=== PATIENT | male | born 1960 | race Caucasian/White ===

== ENCOUNTER 2018-03-20 09:10 | Emergency (ER) | payer BC ==
[2018-03-20] MEDS ORDERED: TOPICAL LIDOCAINE W/ EPI 5 ML TOP ONE (09:12)
[2018-03-20] MEDS ORDERED: THROMBIN/GELATIN FOAM HEMOSTAT (THROMBI-GEL) TP ONE (09:12)
[2018-03-20] MEDS ORDERED: TRANEXAMIC ACID 1,000 MG/10 ML ML TOP ONE (09:12)
[2018-03-20] MEDS ORDERED: DIPHENHYDRAMINE HCL 50 MG/ML VIAL IVP ONE (09:13)
--- NOTE | 2018-03-20 09:30 | Emergency Department Record ---
History of Present Illness - General Stated complaint: BLEEDING FROM NECK Time Seen by Provider: 03/20/18 09:12 Source: Patient Mode of Arrival: Ambulatory Limitations: No limitations - History of Present Illness Initial comments: 57 yo male presents with bleeding from the neck after picking a small pimple. The area has not stopped bleeding. He states he usually bleeds a lot but has never been diagnosed with a bleeding disorder and does not take anti- coagulants. He also now feels like he is having an allergic reaction but is unsure to what. He has had reactions in the past. He feels flushed. He took Benadryl prior to arrival. No hives or swelling. MD complaint: Lesion -: Hour(s) (1) Location: Neck Severity: Moderate Consistency: Constant Improves with: None Worsens with: Other (Picks at skin) Context: None (picks at skin) Associated symptoms: Other (flushing) Treatments Prior to Arrival: Benadryl - Related Data Home Medications Medication Instructions Recorded Confirmed Last Taken Cyanocobalamin (Vitamin B-12) 1,000 mcg IJ ASDIR 03/20/18 03/20/18 2 Weeks Ago [Cyanocobalamin Injection] ~03/06/18 Epinephrine [Epipen] 0.3 mg IM ASDIR PRN 03/20/18 03/20/18 Unknown Meperidine HCl/Pf [Demerol 100 100 mg IJ BID PRN 03/20/18 03/20/18 1 Day Ago mg/ml Carpuject] ~03/19/18 Ondansetron [Zofran Odt] 4 mg PO Q8H 03/20/18 03/20/18 1 Day Ago ~03/19/18 Propranolol HCl [Inderal LA] 60 mg PO DAILY 03/20/18 03/20/18 1 Day Ago ~03/19/18 Quetiapine Fumarate [Seroquel] 50 mg PO DAILY 03/20/18 03/20/18 1 Day Ago ~03/19/18 Ranitidine HCl 150 mg PO DAILY 03/20/18 03/20/18 1 Day Ago ~03/19/18 Rosuvastatin Calcium 10 mg PO DAILY 03/20/18 03/20/18 1 Day Ago ~03/19/18 Sumatriptan Succinate [Imitrex] 6 mg SQ DAILY PRN 03/20/18 03/20/18 1 Day Ago ~03/19/18 Tizanidine HCl [Zanaflex] 4 mg PO DAILY 03/20/18 03/20/18 1 Day Ago ~03/19/18 Allergies Allergy/AdvReac Type Severity Reaction Status Date / Time adhesive tape Allergy HYPERSENSIT Verified 03/20/18 09:27 IVITY ciprofloxacin Allergy RASH Verified 03/20/18 09:27 codeine Allergy SWELLING Verified 03/20/18 09:27 OF THE TONGUE fentanyl Allergy SWELLING Verified 03/20/18 09:27 OF THE TONGUE hydrocortisone Allergy SWELLING Verified 03/20/18 09:27 (GENERAL) hydromorphone [From Dilaudid] Allergy SWELLING Verified 03/20/18 09:27 OF THE TONGUE iodine Allergy DIFFICULTY Verified 03/20/18 09:27 BREATHING meperidine [From Demerol] Allergy HIVES Verified 03/20/18 09:27 morphine Allergy DIFFICULTY Verified 03/20/18 09:27 BREATHING pantoprazole [From Protonix] Allergy ANAPHYLAXIS Verified 03/20/18 09:27 Penicillins Allergy DIFFICULTY Verified 03/20/18 09:27 BREATHING propylthiouracil Allergy HYPERSENSIT Verified 03/20/18 09:27 IVITY Review of Systems Constitutional: Denies: Chills, Fever, Malaise Eyes: Denies: Eye discharge, Eye pain, Photophobia ENT: Denies: Congestion, Throat pain Respiratory: Denies: Cough, Dyspnea, Hemoptysis, Stridor, Wheezes Cardiovascular: Denies: Chest pain, Syncope Endocrine: Denies: Fatigue Gastrointestinal: Denies: Abdominal pain, Diarrhea, Nausea, Vomiting Genitourinary: Denies: Dysuria, Frequency, Hematuria Musculoskeletal: Denies: Arthralgia, Back pain, Joint swelling, Myalgia Skin: Reports: Change in color, Lesions. Denies: Bruising Neurological: Denies: Confusion, Headache Psychiatric: Denies: Anxiety Hematological/Lymphatic: Reports: Easy bleeding. Denies: Anemia, Blood Clots, Easy bruising, Swollen glands Physical Exam - General General Appearance: Alert, Oriented x3, Cooperative, No acute distress Limitations: No limitations - Head Head exam: Atraumatic, Normocephalic, Normal inspection - Eye Eye exam: Normal appearance, PERRL. negative: Conjunctival injection, Scleral icterus - ENT ENT exam: Normal exam, Mucous membranes moist, Normal orophraynx Ear exam: Normal external inspection Nasal Exam: Normal inspection. negative: Dried blood Mouth exam: Normal external inspection, Tongue normal. negative: Drooling, Muffled voice, Tongue elevation, Trismus Teeth exam: Normal inspection Throat exam: Normal inspection. negative: Tonsillar erythema, Tonsillomegaly, Tonsillar exudate, R peritonsillar mass, L peritonsillar mass - Neck Neck exam: Full ROM (no neck swelling or hematoma), Other (2mm bleeding site that had been picked by the patient). negative: Normal inspection - Respiratory Respiratory exam: Normal lung sounds bilaterally. negative: Respiratory distress - Cardiovascular Cardiovascular Exam: Regular rate, Normal rhythm, Normal heart sounds - GI/Abdominal GI/Abdominal exam: Soft. negative: Tenderness - Rectal Rectal exam: Deferred - exam: Deferred - Extremities Extremities exam: Normal inspection, Full ROM, Normal capillary refill. negative: Pedal edema, Tenderness - Back Back exam: Denies: CVA tenderness (R), CVA tenderness (L) - Neurological Neurological exam: Alert, Oriented X3 - Psychiatric Psychiatric exam: Normal affect, Normal mood - Skin Skin exam: Other (2mm neck bleeding site) Course - Reevaluation(s) Reevaluation #1: Direct pressure was applied to the wound TLE place on cotton ball Lidocaine with epinephrine local 1.5ml Silver nitrate applied with good results with mild ooze TXA on thromin gelfoam placed with good results. 03/20/18 09:37 03/20/18 10:11 The patient is resting comfortably No acute changes on the CBC No bleeding under the clear tegaderm 03/20/18 10:21 There is a mild decrease in K Replacement ordered Doing well. No bleeding Medical Decision Making - Lab Data Result diagrams: 03/20/18 09:17 03/20/18 09:17 Disposition Disposition: Discharge Clinical Impression: Bleeding, Hypokalemia Disposition: Home, Self-Care Condition: (1) Good Instructions: Hypokalemia (ED), Hematoma (ED) Additional Instructions: Leave the dressing on until Tuesday morning Return if you have pain, swelling, bleeding Call your doctor for a recheck after this ED visit to review the visit and results Forms: Patient Portal Access Time of Disposition: 10:13 Quality - Quality Measures Quality Measures: N/A - Blood Pressure Screening Does Patient Have Any of the Following: Active Dx of HTN Blood Pressure Classification: Hypertensive Reading Systolic Measurement: 201 Diastolic Measurement: 133 Screening for High Blood Pressure: Patient Exclusion, Hx of HTN [G9744]
[2018-03-20 10:03] LABS: BASO % 0.3 % (0-6); EOS % 1.8 % (0-6); GRAN % 65.3 % (47-80); HEMATOCRIT 44.9 % (42.0-52.0); HEMOGLOBIN 14.3 gm/dl (14.0-18.0); LYMPH % 20.6 % (16-45); MEAN CELL VOLUME 83.8 fl (81-97); MEAN CORPUSCULAR HEMOGLOBIN 26.7 pg (27-33); MEAN CORPUSCULAR HGB CONC 31.8 g/dl (32-36); MEAN PLATELET VOLUME 9.5 fl (7.4-10.4); PLATELET COUNT 231 K/uL (130-400); RED BLOOD COUNT 5.36 M/uL (4.40-5.70); RED CELL DISTRIBUTION WIDTH 14.9 % (11.5-14.5); WHITE BLOOD COUNT W/O DIFF 10.2 K/uL (4.2-12.2)
[2018-03-20 10:09] LABS: BLOOD UREA NITROGEN 12 mg/dL (6-20); CREATININE 1.1 mg/dL (0.7-1.2); EST GLOMERULAR FILTRATION RATE > 60 mL/min
[2018-03-20 10:12] LABS: GLUCOSE,RANDOM 100 mg/dL (74-109)
[2018-03-20 10:13] LABS: PARTIAL THROMBOPLASTIN TIME 24.5 SECONDS (24.5-39.1); PROTHROMBIN TIME (PATIENT) 10.4 SECONDS (9.5-12.1)
[2018-03-20] MEDS ORDERED: POTASSIUM CHLORIDE 20 MEQ TABLET PO ONE (10:21)
[2018-03-20] MEDS ORDERED: POTASSIUM BICARB./CIT AC 25 MEQ EFF.TAB PO STA (10:32)
== END 2018-03-20 11:14 | disposition home or self-care (01) ==
LOC: ER 09:10
DX: S10.90XA Unspecified superficial injury of unspecified part of neck, initial encounter (principal); E87.6 Hypokalemia; I10 Essential (primary) hypertension; W22.8XXA Striking against or struck by other objects, initial encounter
CPT/HCPCS: 99284 ×2; 96374; 85025; 85730; 85610; 80048; J3490; J1200

== ENCOUNTER 2018-07-26 09:41 | Emergency (ER) | payer BC ==
[2018-07-26] MEDS ORDERED: METOCLOPRAMIDE HCL 10 MG/2 ML VIAL IVP ONE (10:05)
[2018-07-26] MEDS ORDERED: KETOROLAC 30 MG/ML VIAL IVP ONE (10:05)
[2018-07-26] MEDS ORDERED: 0.9 % SODIUM CHLORIDE 1,000 ML BAG IV ONE ×2 (10:05→10:45)
[2018-07-26] MEDS ORDERED: DIPHENHYDRAMINE HCL 50 MG/ML VIAL IVP ONE (10:05)
--- NOTE | 2018-07-26 10:21 | Emergency Department Record ---
History of Present Illness - General Chief Complaint: Headache Migraine Stated Complaint: MIGRAINE AND VOMITING Time Seen by Provider: 07/26/18 10:00 Source: Patient, Family Mode of Arrival: Ambulatory Limitations: No limitations - History of Present Illness Initial Comments: The patient is here due to a migraine JOINER for the last 5 days. The pain is a sharp throbbing JOINER that has gradually worsened over the last 5 days. He also has had a lot of nausea and vomiting and photophobia. The patient states the pain is over the R temporal area mainly and he does deny any neck pain or stiffness. The patient has a LONG hx of these exact same JOINER's and has had a full workup in the past. He states the only medicine that helps him is injectable Demerol but he has been unable to obtain it. MD Complaint: "Migraine" Onset/Timin -: Days(s) Location: Right, Temporal Severity scale (1-10): 10 Consistency: Constant Improves With: Nothing Worsens With: Exertion/activity, Light Associated Symptoms: Photophobia, Vomiting, Other Treatments Prior to Arrival: None - Related Data Home Medications Medication Instructions Recorded Confirmed Last Taken Promethazine HCl [Phenergan] 25 mg PO DAILY PRN 07/26/18 07/26/18 Unknown Allergies Allergy/AdvReac Type Severity Reaction Status Date / Time adhesive tape Allergy HYPERSENSIT Verified 07/26/18 10:01 IVITY ciprofloxacin Allergy RASH Verified 07/26/18 10:01 codeine Allergy SWELLING Verified 07/26/18 10:01 OF THE TONGUE fentanyl Allergy SWELLING Verified 07/26/18 10:01 OF THE TONGUE hydrocortisone Allergy SWELLING Verified 07/26/18 10:01 (GENERAL) hydromorphone [From Dilaudid] Allergy SWELLING Verified 07/26/18 10:01 OF THE TONGUE iodine Allergy DIFFICULTY Verified 07/26/18 10:01 BREATHING meperidine [From Demerol] Allergy HIVES Verified 07/26/18 10:01 morphine Allergy DIFFICULTY Verified 07/26/18 10:01 BREATHING pantoprazole [From Protonix] Allergy ANAPHYLAXIS Verified 07/26/18 10:01 Penicillins Allergy DIFFICULTY Verified 07/26/18 10:01 BREATHING propylthiouracil Allergy HYPERSENSIT Verified 07/26/18 10:01 IVITY Travel Screening - Travel/Exposure Within Last 30 Days Have you traveled within the last 30 days?: No - Travel/Exposure Within Last Year Have you traveled outside the [place] in the last year?: No - Additonal Travel Details Have you been exposed to anyone with a communicable illness?: No - Travel Symptoms Symptom Screening: None Review of Systems Constitutional: Denies: Chills, Fever Eyes: Denies: Eye discharge ENT: Denies: Congestion Respiratory: Denies: Cough, Dyspnea Cardiovascular: Denies: Arrhythmia Endocrine: Denies: Fatigue Gastrointestinal: Reports: Nausea, Vomiting. Denies: Abdominal pain Genitourinary: Denies: Hematuria Musculoskeletal: Denies: Back pain Skin: Denies: Bruising Past Medical History - SOCIAL HISTORY Smoking Status: Never smoker Alcohol Use: None Drug Use: None - RESPIRATORY Hx Respiratory Disorders: No - CARDIOVASCULAR Hx Cardio Disorders: Yes Hx Hypertension: Yes Comment:: murmur - NEURO Hx Neuro Disorders: Yes Hx Headaches: Yes (migraine) - GI Hx GI Disorders: Yes Hx Rectal Bleeding: Yes - Hx Genitourinary Disorders: Yes Hx Kidney Stones: Yes Hx Renal Disease: Yes (stage 3) - ENDOCRINE Hx Endocrine Disorders: Yes Hx Thyroid Disease: Yes (hyper/hypo) - MUSCULOSKELETAL Hx Musculoskeletal Disorders: Yes Hx Arthritis: Yes - PSYCH Hx Psych Problems: No - HEMATOLOGY/ONCOLOGY Hx Hematology/Oncology Disorders: Yes Hx Anemia: Yes Hx Cancer: Yes (colon) Hx Chemotherapy: Yes Hx Radiation Therapy: Yes Family Medical History Any Significant Family History?: No Hx Heart Disease: Father, Brother/Sister Physical Exam - General General Appearance: Alert, Oriented x3, Cooperative, Mild distress (due to the JOINER.) - Head Head exam: Atraumatic, Normocephalic, Normal inspection - Eye Eye exam: Normal appearance, PERRL, EOMI - ENT Throat exam: Normal inspection. negative: Tonsillar erythema, Tonsillar exudate - Neck Neck exam: Normal inspection, Full ROM. negative: Meningismus (The neck is very supple.), Tenderness - Respiratory Respiratory exam: Normal lung sounds bilaterally. negative: Respiratory distress - Cardiovascular Cardiovascular Exam: Regular rate, Normal rhythm, Normal heart sounds - GI/Abdominal GI/Abdominal exam: Soft, Normal bowel sounds. negative: Tenderness - Extremities Extremities exam: Normal inspection, Full ROM, Normal capillary refill. negative: Tenderness - Back Back exam: Reports: Normal inspection - Neurological Neurological exam: Normal gait, Oriented X3, Other (Neg Drift or [place]omberg.). negative: Abnormal gait, Alert, Motor sensory deficit - Psychiatric Psychiatric exam: Anxious Course Vital Signs 07/26/18 09:50 Temperature 98.6 F Pulse Rate 91 H Respiratory 20 Rate Blood Pressure 154/103 Pulse Ox 97 - Reevaluation(s) Reevaluation #1: The patient is doing a lot better at this time. His pain is almost completely resolved and his nausea also is gone. He is up walking with no difficulty or ataxia. He is to F/U with his PCP later this week for recheck. 07/26/18 11:21 Medical Decision Making - Lab Data Result diagrams: 07/26/18 10:15 07/26/18 10:15 Disposition Disposition: Discharge Clinical Impression: Migraine Qualifiers: Migraine type: unspecified Status migrainosus presence: without status migrainosus Intractability: not intractable Qualified Code(s): G43.909 - Migraine, unspecified, not intractable, without status migrainosus Disposition: Home, Self-Care Condition: (2) Stable Instructions: Migraine Headache (ED) Additional Instructions: Please continue your regular medicines for pain and see your family doctor later this week for recheck. Return to the ER for any worsening pain, fever, vomiting, neck stiffness or confusion. Forms: Patient Portal Access Time of Disposition: 11:23 Quality - Quality Measures Quality Measures: Headache (All Ages) - Headache: Neuroimaging Quality Measure: Measure #419: Overuse of Neuroimaging ICD10 Codes Entered: Yes View Detail: Yes Neurological Exam: Patient had a normal neurological exam. [G9535] Headache: Use of Neuroimaging: < CTA, CT, MRA or MRI was NOT ordered > [G9534] - Blood Pressure Screening View Details: Yes Does Patient Have Any of the Following: Active Dx of HTN Blood Pressure Classification: Hypertensive Reading Systolic Measurement: 160 Diastolic Measurement: 100 Screening for High Blood Pressure: Patient Exclusion, Hx of HTN [G9744]
[2018-07-26 10:35] LABS: BASO % 0.3 % (0-6); EOS % 0.7 % (0-6); GRAN % 67.6 % (47-80); HEMATOCRIT 49.3 % (42.0-52.0); HEMOGLOBIN 16.3 gm/dl (14.0-18.0); LYMPH % 17.5 % (16-45); MEAN CELL VOLUME 84.4 fl (81-97); MEAN CORPUSCULAR HEMOGLOBIN 27.9 pg (27-33); MEAN CORPUSCULAR HGB CONC 33.1 g/dl (32-36); MEAN PLATELET VOLUME 9.1 fl (7.4-10.4); MONO % 13.9 % (0-9); PLATELET COUNT 226 K/uL (130-400); RED BLOOD COUNT 5.84 M/uL (4.40-5.70); RED CELL DISTRIBUTION WIDTH 13.7 % (11.5-14.5); WHITE BLOOD COUNT W/O DIFF 7.1 K/uL (4.2-12.2)
[2018-07-26 10:44] LABS: BLOOD UREA NITROGEN 17 mg/dL (6-20); EST GLOMERULAR FILTRATION RATE > 60 mL/min
[2018-07-26 10:45] LABS: TOTAL PROTEIN 7.4 g/dL (6.6-8.7)
[2018-07-26] MEDS ORDERED: ONDANSETRON HCL IV 4 MG/2 ML VIAL IVP ONE (10:45)
[2018-07-26 10:47] LABS: GLUCOSE,RANDOM 112 mg/dL (74-109)
[2018-07-26 10:49] LABS: ALT/SGPT 16 U/L (<41)
[2018-07-26 10:50] LABS: ALB/GLOB RATIO 1.5 (1.1-1.8); ALBUMIN 4.4 g/dL (4.0-5.0); ALKALINE PHOSPHATASE 77 U/L (40-129); AST/SGOT 23 U/L (10.0-50.0)
== END 2018-07-26 11:35 | disposition home or self-care (01) ==
LOC: ER 09:41
DX: G43.909 Migraine, unspecified, not intractable, without status migrainosus (principal); R11.2 Nausea with vomiting, unspecified; H53.149 Visual discomfort, unspecified; I10 Essential (primary) hypertension
CPT/HCPCS: 99284 ×2; 96374; 96375; 96361; 85025; 80053; J1885; J2405; J1200; J2765; J7030

== ENCOUNTER 2018-10-15 08:52 | Emergency (ER) | payer BC ==
[2018-10-15] MEDS ORDERED: 0.9 % SODIUM CHLORIDE 1,000 ML BAG IV ONE (09:35)
--- NOTE | 2018-10-15 09:36 | Emergency Department Record ---
History of Present Illness - General Chief Complaint: Headache Migraine Stated Complaint: MIGRAINE,VOMITING Time Seen by Provider: 10/15/18 09:32 Source: Patient, RN notes reviewed Mode of Arrival: Ambulatory - History of Present Illness Initial Comments: patient has a headache migraine which is chronic last headache one month ago. Onset/Timin -: Days(s) Onset Description: Gradual Location: Frontal Severity: Severe Severity scale (1-10): 10 Quality: Similar to previous headaches Consistency: Constant Improves With: Nothing Worsens With: Light, Noise Associated Symptoms: Photophobia, Sensitivity to sound, Vomiting Treatments Prior to Arrival: Prescription analgesic Treatment Prior to Arrival Comment:: po Demerol - Related Data Home Medications Medication Instructions Recorded Confirmed Last Taken Meperidine HCl 100 mg PO ASDIR PRN 10/15/18 10/15/18 10/15/18 Ondansetron [Zofran Odt] 4 mg SL ASDIR 10/15/18 10/15/18 10/15/18 Promethazine HCl [Phenergan] 25 mg PO ASDIR 10/15/18 10/15/18 10/14/18 Propranolol HCl [Inderal LA] 60 mg PO DAILY 10/15/18 10/15/18 10/14/18 Quetiapine Fumarate [Seroquel] 50 mg PO QHS 10/15/18 10/15/18 10/14/18 Ranitidine HCl [Zantac] 150 mg PO DAILY 10/15/18 10/15/18 10/14/18 Rosuvastatin Calcium [Crestor] 10 mg PO DAILY 10/15/18 10/15/18 10/14/18 Sumatriptan Succinate [Imitrex] 6 mg SQ ASDIR PRN 10/15/18 10/15/18 10/11/18 Tizanidine HCl 4 mg PO ASDIR 10/15/18 10/15/18 10/15/18 Allergies Allergy/AdvReac Type Severity Reaction Status Date / Time adhesive tape Allergy HYPERSENSIT Verified 10/15/18 09:13 IVITY ciprofloxacin Allergy RASH Verified 10/15/18 09:13 codeine Allergy SWELLING Verified 10/15/18 09:13 OF THE TONGUE fentanyl Allergy SWELLING Verified 10/15/18 09:13 OF THE TONGUE hydrocortisone Allergy SWELLING Verified 10/15/18 09:13 (GENERAL) hydromorphone [From Dilaudid] Allergy SWELLING Verified 10/15/18 09:13 OF THE TONGUE iodine Allergy DIFFICULTY Verified 10/15/18 09:13 BREATHING meperidine [From Demerol] Allergy HIVES Verified 10/15/18 09:13 morphine Allergy DIFFICULTY Verified 10/15/18 09:13 BREATHING pantoprazole [From Protonix] Allergy ANAPHYLAXIS Verified 10/15/18 09:13 Penicillins Allergy DIFFICULTY Verified 10/15/18 09:13 BREATHING propylthiouracil Allergy HYPERSENSIT Verified 10/15/18 09:13 IVITY Travel Screening - Travel/Exposure Within Last 30 Days Have you traveled within the last 30 days?: No - Travel/Exposure Within Last Year Have you traveled outside the [place] in the last year?: No - Additonal Travel Details Have you been exposed to anyone with a communicable illness?: No - Travel Symptoms Symptom Screening: None Review of Systems Reviewed: No additional complaints except as noted below Constitutional: Reports: As per HPI. Denies: Chills, Fever, Malaise, Night sweats, Weakness, Weight change Eyes: Reports: As per HPI. Denies: Eye discharge, Eye pain, Photophobia, Vision change ENT: Reports: As per HPI. Denies: Congestion, Dental pain, Ear pain, Epistaxis , Hearing loss, Throat pain Respiratory: Reports: As per HPI. Denies: Cough, Dyspnea, Hemoptysis, Stridor, Wheezes Cardiovascular: Reports: As per HPI. Denies: Arrhythmia, Chest pain, Dyspnea on exertion, Edema, Murmurs, Orthopnea, Palpitations, Paroxysmal nocturnal dyspnea, Rheumatic Fever, Syncope Endocrine: Reports: As per HPI. Denies: Fatigue, Heat or cold intolerance, Polydipsia, Polyuria Gastrointestinal: Reports: As per HPI. Denies: Abdominal pain, Constipation, Diarrhea, Hematemesis, Hematochezia, Melena, Nausea, Vomiting Genitourinary: Reports: As per HPI. Denies: Dysuria, Frequency, Hematuria, Incontinence, Retention, Testicular pain, Testicular mass, Urgency Musculoskeletal: Reports: As per HPI. Denies: Arthralgia, Back pain, Gout, Joint swelling, Myalgia, Neck pain Skin: Reports: As per HPI. Denies: Bruising, Change in color, Change in hair/ nails, Lesions, Pruritus, Rash Neurological: Reports: As per HPI, Headache. Denies: Abnormal gait, Confusion, Numbness, Paresthesias, Seizure, Tingling, Tremors, Vertigo, Weakness Psychiatric: Reports: As per HPI. Denies: Anxiety, Auditory hallucinations, Depression, Homicidal thoughts, Suicidal thoughts, Visual hallucinations Hematological/Lymphatic: Reports: As per HPI. Denies: Anemia, Blood Clots, Easy bleeding, Easy bruising, Swollen glands Past Medical History - SOCIAL HISTORY Smoking Status: Never smoker Alcohol Use: Rare Drug Use: None - RESPIRATORY Hx Respiratory Disorders: No - CARDIOVASCULAR Hx Cardio Disorders: Yes Hx Hypertension: Yes Comment:: murmur - NEURO Hx Neuro Disorders: Yes Hx Headaches: Yes (migraine) - GI Hx GI Disorders: Yes Hx Reflux: Yes Hx Rectal Bleeding: Yes - Hx Genitourinary Disorders: Yes Hx Kidney Stones: Yes Hx Renal Disease: Yes (stage 3) - ENDOCRINE Hx Endocrine Disorders: Yes Hx Thyroid Disease: Yes (hyper/hypo) - MUSCULOSKELETAL Hx Musculoskeletal Disorders: Yes Hx Arthritis: Yes - PSYCH Hx Psych Problems: No - HEMATOLOGY/ONCOLOGY Hx Hematology/Oncology Disorders: Yes Hx Anemia: Yes Hx Cancer: Yes (colon) Hx Chemotherapy: Yes Hx Radiation Therapy: Yes Family Medical History Any Significant Family History?: Yes Hx Heart Disease: Father, Brother/Sister Physical Exam - General General Appearance: Alert, Oriented x3, Cooperative, No acute distress - Head Head exam: Normal inspection - Eye Eye exam: Normal appearance, PERRL Pupils: Normal accommodation - ENT ENT exam: Normal exam, Mucous membranes moist, Normal external ear exam, Normal orophraynx, TM's normal bilaterally Ear exam: Normal external inspection. negative: External canal tenderness Nasal Exam: Normal inspection. negative: Discharge, Sinus tenderness Mouth exam: Normal external inspection, Tongue normal Teeth exam: Normal inspection. negative: Dental caries Throat exam: Normal inspection. negative: Tonsillar erythema, Tonsillar exudate - Neck Neck exam: Normal inspection, Full ROM. negative: Tenderness - Respiratory Respiratory exam: Normal lung sounds bilaterally. negative: Respiratory distress - Cardiovascular Cardiovascular Exam: Regular rate, Normal rhythm, Normal heart sounds - GI/Abdominal GI/Abdominal exam: Soft, Normal bowel sounds. negative: Tenderness - Rectal Rectal exam: Deferred - exam: Deferred - Extremities Extremities exam: Normal inspection, Full ROM, Normal capillary refill. negative: Tenderness - Back Back exam: Reports: Normal inspection, Full ROM. Denies: Muscle spasm, Rash noted, Tenderness - Neurological Neurological exam: Alert, Normal gait, Oriented X3, Reflexes normal - Psychiatric Psychiatric exam: Normal affect, Normal mood - Skin Skin exam: Dry, Intact, Normal color, Warm Course Vital Signs 10/15/18 09:25 Temperature 98.2 F Pulse Rate 92 H Respiratory 20 Rate Blood Pressure 157/97 Pulse Ox 96 - Reevaluation(s) Reevaluation #1: patient is feeling better 10/15/18 11:16 Medical Decision Making - Data Complexity MDM Data: Labs Ordered and/or Reviewed (wbc 8,300 glucose 131 bun 12 creat 1.) - Lab Data Result diagrams: 10/15/18 09:15 10/15/18 09:15 Disposition Clinical Impression: Migraine Qualifiers: Migraine type: unspecified Status migrainosus presence: without status migrainosus Intractability: not intractable Qualified Code(s): G43.909 - Migraine, unspecified, not intractable, without status migrainosus Disposition: Home, Self-Care Condition: (1) Good Instructions: Migraine Headache (ED) Additional Instructions: continue home medications follow up with family DR in 2 days Forms: Patient Portal Access Time of Disposition: 11:18 Quality - Quality Measures Quality Measures: N/A, Headache (All Ages) - Headache: Neuroimaging Quality Measure: Measure #419: Overuse of Neuroimaging ICD10 Codes Entered: Yes Neurological Exam: Patient had a normal neurological exam. [G9535] Headache: Use of Neuroimaging: < CTA, CT, MRA or MRI was NOT ordered > [G9534] - Blood Pressure Screening Does Patient Have Any of the Following: No, Active Dx of HTN Blood Pressure Classification: Hypertensive Reading Systolic Measurement: 157 Diastolic Measurement: 97 Screening for High Blood Pressure: Patient Exclusion, Hx of HTN [G9744]
[2018-10-15] MEDS ORDERED: METOCLOPRAMIDE HCL 10 MG/2 ML VIAL IVP ONE (09:37)
[2018-10-15] MEDS ORDERED: DIPHENHYDRAMINE HCL 50 MG/ML VIAL IVP ONE (09:37)
[2018-10-15] MEDS ORDERED: KETOROLAC 30 MG/ML VIAL IVP ONE (09:37)
[2018-10-15 09:53] LABS: BASO % 0.2 % (0-6); EOS % 0.4 % (0-6); GRAN % 75.5 % (47-80); HEMATOCRIT 53.6 % (42.0-52.0); HEMOGLOBIN 17.5 gm/dl (14.0-18.0); LYMPH % 14.1 % (16-45); MEAN CORPUSCULAR HEMOGLOBIN 28.4 pg (27-33); MEAN CORPUSCULAR HGB CONC 32.6 g/dl (32-36); MEAN PLATELET VOLUME 8.9 fl (7.4-10.4); MONO % 9.8 % (0-9); PLATELET COUNT 240 K/uL (130-400); RED BLOOD COUNT 6.16 M/uL (4.40-5.70); RED CELL DISTRIBUTION WIDTH 14.9 % (11.5-14.5); WHITE BLOOD COUNT W/O DIFF 8.3 K/uL (4.2-12.2)
[2018-10-15 10:04] LABS: BLOOD UREA NITROGEN 12 mg/dL (6-20); EST GLOMERULAR FILTRATION RATE > 60 mL/min
[2018-10-15 10:07] LABS: GLUCOSE,RANDOM 131 mg/dL (74-109)
== END 2018-10-15 11:32 | disposition home or self-care (01) ==
LOC: ER 08:52
DX: G43.909 Migraine, unspecified, not intractable, without status migrainosus (principal); R11.11 Vomiting without nausea; H53.149 Visual discomfort, unspecified; I10 Essential (primary) hypertension
CPT/HCPCS: 80048; 85025; 96361; 96374; 96375; 99284; J1200; J1885; J2765; J7030

== ENCOUNTER 2019-11-10 11:53 | Emergency (ER) | payer BC ==
[2019-11-10] MEDS: ORPHENADRINE CITRATE 60MG/2ML VIAL IM ONE (13:05)
[2019-11-10] MEDS: KETOROLAC 30 MG/ML VIAL IM ONE (13:05)
--- NOTE | 2019-11-10 13:06 | Emergency Department Record ---
History of Present Illness - General Chief Complaint: Back Pain/Injury Stated Complaint: BACK PAIN Time Seen by Provider: 11/10/19 12:34 Source: Patient, RN notes reviewed - History of Present Illness Initial Comments: left L2 back pain worse with motion and reproducible and worse with palpation. Pateint seen in [facility] one week ago and diagnosed with UTI and he is finishing his antibiotics up macrobid and pyridium. No falls and no incontience of urine or stool. MD Complaint: Back pain Onset/Timin -: Week(s) Consistency: Constant Context: Unknown Associated Symptoms: Denies other symptoms Treatments Prior to Arrival: NSAIDS - Related Data Previous Rx's Medication Instructions Recorded Tramadol HCl 50 mg PO Q8H #9 tab 11/10/19 Allergies Allergy/AdvReac Type Severity Reaction Status Date / Time levofloxacin [From Levaquin] Allergy Intermediate THROAT Verified 11/10/19 12:32 SWELLING adhesive tape Allergy HYPERSENSIT Verified 11/10/19 12:32 IVITY ciprofloxacin Allergy RASH Verified 11/10/19 12:32 codeine Allergy SWELLING Verified 11/10/19 12:32 OF THE TONGUE fentanyl Allergy SWELLING Verified 11/10/19 12:32 OF THE TONGUE hydrocortisone Allergy SWELLING Verified 11/10/19 12:32 (GENERAL) hydromorphone [From Dilaudid] Allergy SWELLING Verified 11/10/19 12:32 OF THE TONGUE iodine Allergy DIFFICULTY Verified 11/10/19 12:32 BREATHING meperidine [From Demerol] Allergy HIVES Verified 11/10/19 12:32 morphine Allergy DIFFICULTY Verified 11/10/19 12:32 BREATHING pantoprazole [From Protonix] Allergy ANAPHYLAXIS Verified 11/10/19 12:32 Penicillins Allergy DIFFICULTY Verified 11/10/19 12:32 BREATHING propylthiouracil Allergy HYPERSENSIT Verified 11/10/19 12:32 IVITY Travel Screening - Travel/Exposure Within Last 30 Days Have you traveled within the last 30 days?: No - Travel/Exposure Within Last Year Have you traveled outside the [place] in the last year?: No - Additonal Travel Details Have you been exposed to anyone with a communicable illness?: No - Travel Symptoms Symptom Screening: None Review of Systems Reviewed: No additional complaints except as noted below Constitutional: Reports: As per HPI. Denies: Chills, Fever, Malaise, Night sweats, Weakness, Weight change Eyes: Reports: As per HPI. Denies: Eye discharge, Eye pain, Photophobia, Vision change ENT: Reports: As per HPI. Denies: Congestion, Dental pain, Ear pain, Epistaxis, Hearing loss, Throat pain Respiratory: Reports: As per HPI. Denies: Cough, Dyspnea, Hemoptysis, Stridor, Wheezes Cardiovascular: Reports: As per HPI. Denies: Arrhythmia, Chest pain, Dyspnea on exertion, Edema, Murmurs, Orthopnea, Palpitations, Paroxysmal nocturnal dyspnea, Rheumatic Fever, Syncope Endocrine: Reports: As per HPI. Denies: Fatigue, Heat or cold intolerance, Polydipsia, Polyuria Gastrointestinal: Reports: As per HPI. Denies: Abdominal pain, Constipation, Diarrhea, Hematemesis, Hematochezia, Melena, Nausea, Vomiting Genitourinary: Reports: As per HPI. Denies: Dysuria, Frequency, Hematuria, Incontinence, Retention, Testicular pain, Testicular mass, Urgency Musculoskeletal: Reports: As per HPI, Back pain. Denies: Arthralgia, Gout, Joint swelling, Myalgia, Neck pain Skin: Reports: As per HPI. Denies: Bruising, Change in color, Change in hair/nails, Lesions, Pruritus, Rash Neurological: Reports: As per HPI. Denies: Abnormal gait, Confusion, Headache, Numbness, Paresthesias, Seizure, Tingling, Tremors, Vertigo, Weakness Psychiatric: Reports: As per HPI. Denies: Anxiety, Auditory hallucinations, Depression, Homicidal thoughts, Suicidal thoughts, Visual hallucinations Hematological/Lymphatic: Reports: As per HPI. Denies: Anemia, Blood Clots, Easy bleeding, Easy bruising, Swollen glands Past Medical History - SOCIAL HISTORY Smoking Status: Never smoker Alcohol Use: None Drug Use: None - RESPIRATORY Hx Respiratory Disorders: No - CARDIOVASCULAR Hx Cardio Disorders: Yes Hx Hypertension: Yes Comment:: murmur - NEURO Hx Neuro Disorders: Yes Hx Headaches: Yes (migraine) - GI Hx GI Disorders: Yes Hx Reflux: Yes Hx Rectal Bleeding: Yes - Hx Genitourinary Disorders: Yes Hx Kidney Stones: Yes Hx Renal Disease: Yes (stage 3) - ENDOCRINE Hx Endocrine Disorders: Yes Hx Thyroid Disease: Yes (hyper/hypo) - MUSCULOSKELETAL Hx Musculoskeletal Disorders: Yes Hx Arthritis: Yes - PSYCH Hx Psych Problems: No - HEMATOLOGY/ONCOLOGY Hx Hematology/Oncology Disorders: Yes Hx Anemia: Yes Hx Cancer: Yes (colon) Hx Chemotherapy: Yes Hx Radiation Therapy: Yes Family Medical History Any Significant Family History?: No Hx Heart Disease: Father, Brother/Sister Physical Exam - General General Appearance: Alert, Oriented x3, Cooperative, No acute distress - Head Head exam: Normal inspection - Eye Eye exam: Normal appearance, PERRL Pupils: Normal accommodation - ENT ENT exam: Normal exam, Mucous membranes moist, Normal external ear exam, Normal orophraynx, TM's normal bilaterally Ear exam: Normal external inspection. negative: External canal tenderness Nasal Exam: Normal inspection. negative: Discharge, Sinus tenderness Mouth exam: Normal external inspection, Tongue normal Teeth exam: Normal inspection. negative: Dental caries Throat exam: Normal inspection. negative: Tonsillar erythema, Tonsillar exudate - Neck Neck exam: Normal inspection, Full ROM. negative: Tenderness - Respiratory Respiratory exam: Normal lung sounds bilaterally. negative: Respiratory distress - Cardiovascular Cardiovascular Exam: Regular rate, Normal rhythm, Normal heart sounds - GI/Abdominal GI/Abdominal exam: Soft, Normal bowel sounds. negative: Tenderness - Rectal Rectal exam: Deferred - exam: Deferred - Extremities Extremities exam: Normal inspection, Full ROM, Normal capillary refill. negative: Tenderness - Back Back exam: Reports: Normal inspection, Muscle spasm, Tenderness (pain left L2 area of back and over illiac crest). Denies: Rash noted - Neurological Neurological exam: Alert, Normal gait, Oriented X3, Reflexes normal - Psychiatric Psychiatric exam: Normal affect, Normal mood - Skin Skin exam: Dry, Intact, Normal color, Warm Course Vital Signs 11/10/19 12:08 Temperature 97.1 F L Pulse Rate [ 74 Pulse Ox Probe] Respiratory 20 Rate Blood Pressure 84/68 [Left Arm] Blood Pressure 119/81 [Right Arm] Pulse Ox 97 - Reevaluation(s) Reevaluation #1: feeling better 11/10/19 14:07 Disposition Clinical Impression: Lumbar strain Qualifiers: Encounter type: initial encounter Qualified Code(s): S39.012A - Strain of muscle, fascia and tendon of lower back, initial encounter Disposition: Home, Self-Care Condition: (1) Good Instructions: Low Back Strain (ED) Additional Instructions: follow up with Dr Marinelli in one week use zanaflex twice a day continue lidoderm patches otc Prescriptions: Tramadol HCl 50 mg PO Q8H #9 tab Forms: Patient Portal Access Time of Disposition: 14:13 Quality - Quality Measures Quality Measures: N/A - Blood Pressure Screening Does Patient Have Any of the Following: No, Active Dx of HTN Blood Pressure Classification: Pre-Hypertensive BP Reading Systolic Measurement: 119 Diastolic Measurement: 81 Screening for High Blood Pressure: Patient Exclusion, Hx of HTN [[id number]]
== END 2019-11-10 14:24 | disposition home or self-care (01) ==
LOC: ER 11:53
DX: S39.012A Strain of muscle, fascia and tendon of lower back, initial encounter (principal); I10 Essential (primary) hypertension; X58.XXXA Exposure to other specified factors, initial encounter
CPT/HCPCS: 96372; 99284; J1885; J2360